=== PATIENT | male | born 1955 | race Two or more races ===

== ENCOUNTER 2021-11-13 09:54 | Outpatient (CLI) | payer MEDICARE, OTHER ==
[2021-11-13 11:08] LABS: CALCIUM, SERUM 9.2 mg/dL (8.5-10.1); CREATININE 1.1 mg/dL (0.6-1.3); POTASSIUM 4.4 mmol/L (3.5-5.1)
[2021-11-13] MEDS ORDERED: IOHEXOL-350 100 ML VIAL IV ONE (11:43)
[2021-11-13] MEDS ORDERED: IV NS 0.9% 250 ML IV ONE (11:43)
[2021-11-13] MEDS ORDERED: CT SWABBABLE VALVE TRANS SET 1 EA INFUS.SET MC ONE (11:43)
== END 2021-11-13 23:59 | disposition home or self-care (01) ==
LOC: CT 09:54
PROVIDERS: ATTEND Internal Medicine Interventional Cardiology
DX: K40.90 Unilateral inguinal hernia, without obstruction or gangrene, not specified as recurrent (principal); I74.3 Embolism and thrombosis of arteries of the lower extremities; R94.4 Abnormal results of kidney function studies; I70.0 Atherosclerosis of aorta
CPT/HCPCS: 36415; 75635; 80048; J7050; Q9967